=== PATIENT | female | born 1950 | race Caucasian/White ===

== ENCOUNTER 2024-08-11 06:25 | Outpatient (RCR) | payer MEDICARE, OTHER, SELFPAY | END 2024-08-11 23:59 | disposition home or self-care (01) | LOC: RPT 06:25 | PROVIDERS: ATTENDING PHYSICIAN Student in an Organized Health Care Education/Training Program | DX: S49.82XS Other specified injuries of left shoulder and upper arm, sequela (principal); M25.512 Pain in left shoulder; M62.89 Other specified disorders of muscle; Z73.6 Limitation of activities due to disability | CPT/HCPCS: 97010; 97110; 97140; 97162; 97530 ==

== ENCOUNTER 2024-09-01 10:04 | Outpatient (RCR) | payer MEDICARE, OTHER, SELFPAY | END 2024-09-01 23:59 | disposition home or self-care (01) | LOC: RPT 10:04 | PROVIDERS: ATTENDING PHYSICIAN Student in an Organized Health Care Education/Training Program | DX: S49.82XS Other specified injuries of left shoulder and upper arm, sequela (principal); M25.512 Pain in left shoulder; M62.89 Other specified disorders of muscle; Z73.6 Limitation of activities due to disability | CPT/HCPCS: 97010; 97110; 97140 ==

== ENCOUNTER 2024-10-03 09:00 | Emergency (ER) | payer MEDICARE, OTHER, SELFPAY ==
[2024-10-03 09:06] VITALS: BP 125/60
--- NOTE | 2024-10-03 09:48 | ED.GENMED ---
History of Present Illness
General
Chief Complaint: Cough
Source: patient
Exam Limitations: none
Time Seen by Provider: 10/03/24 09:14
Nursing documentation reviewed up to this point in time: agreed with
History of Present Illness
History of Present Illness:
Patient with history of congestive heart failure on torsemide and atrial fibrillation on Eliquis, presents ED secondary to 1 week history of persistent cough, with difficulty sleeping at nighttime. Patient was evaluated at urgent care center 2 days
ago and was prescribed Augmentin along with Tessalon Perle, with minimal relief of symptoms. Denies fever or chills. Denies chest pain. Denies nausea, vomiting, or diarrhea. Denies headache. Denies neck pain. Denies rash. Denies back pain.
No recent travel. Unfortunately, patient who lives at home with family, there are multiple family members who are expressing similar symptoms. Denies loss of appetite. Denies recent change in weight. Denies increased leg swelling or pain.
Review of Systems
Review of Systems
Allergies reviewed?: Yes
All Other Systems: ROS reviewed and negative except as documented in HPI and ROS
Constitutional: Reports no symptoms; Denies fever or chills
Respiratory: Reports cough and trouble breathing
Cardiac: Reports no symptoms; Denies chest pain
ABD/GI: Reports no symptoms; Denies vomiting or diarrhea
: Reports no symptoms
Musculoskeletal: Reports no symptoms
Skin: Reports no symptoms
Neurological: Reports no symptoms; Denies dizzy, headache or weakness
Phy Exam
Physical Exam
Physical Exam:
Physical Exam
General: mild distress, not acutely ill. afebrile
Head: nc/at. eomi
Neck: supple. no meningeal signs. no jvd
Heart: s1/s2 regular rate and rhythm
Lungs: mild respiratory distress. clear bilaterally
Abdomen: normal bowel sounds. not tender.
Neuro: alert and oriented x 3. no focal neurological deficits
Skin: no rash
Psychiatric: well kept. interactive and cooperative
Extremities: no edema. no calf tenderness.
Course
Orders/Labs/Results
Orders:
Orders
10/03/24 09:28
CR Chest - 2 Views Urgent
Comment:
Reason For Exam: cough/sob
10/03/24 09:59
Dexamethasone Pf [Decadron] 10 mg PO NOW STA
10/03/24 10:06
Dexamethasone Pf [Decadron] 10 mg .ROUTE .STK-MED ONE
Vital Signs
Initial and Last Documented VS:
Initial Vital Signs
Temp Pulse Resp BP Pulse Ox
97.9 F 70 18 125/60 96
10/03/24 09:06 10/03/24 09:06 10/03/24 09:06 10/03/24 09:06 10/03/24 09:06
Last Documented Vital Signs
Temp Pulse Resp BP Pulse Ox
97.9 F 70 18 125/60 96
10/03/24 09:06 10/03/24 09:06 10/03/24 09:06 10/03/24 09:06 10/03/24 09:51
MDM/Problems Addressed
MDM/Problems Addressed:
Chest x-ray report reviewed and discussed with patient and family. History and exam consistent with likely pneumonia. Fortunately, patient is afebrile, hemodynamically stable, without any acute respite distress, nor any evidence of dehydration.
Discussed treatment options with the patient and family. At this time, patient feels comfortable going home with continuation of her already prescribed antibiotics, along with close follow-up with PCP as an outpatient. Patient advised to return to
ED with worsening symptoms.
*Pulse Oximetry
SaO2: 96
Oxygen Mode of Delivery: Room air
Patient hypoxic: no
*Critical Care Note
Total Time (30-74mins, 75-104mins- exclusive of procedures): Not Applicable
ED Attending Note
-
Portions of this chart may have been created with voice recognition software.� Occasional wrong word or��sound alike� substitutions may have occurred due to the inherent limitations of voice recognition software.
Discharge Plan
Departure
Patient Disposition: Home (Routine Discharge)
Date of Disposition: 10/03/24
Time of Disposition: 09:59
Patient with high blood pressure during this ER visit?: Yes
Condition: Fair
Discharge Problem:
Pneumonia
Instructions: Pneumonia, Adult (DC)
Prescriptions:
New
albuterol sulfate [Ventolin HFA] 90 mcg/actuation HFA aerosol inhaler
2 puff inhalation Q6H PRN (Reason: shortness of breath or wheezing) Qty: 8.5 0RF
Referrals:
Montserrat Art MD [Family Provider]
Activity Restrictions/Additional Instructions:
As discussed, please follow-up with your primary care physician for reevaluation this week, or return to ED with worsening symptoms. In ED, chest x-ray revealed likely right-sided pneumonia. Please continue already prescribed antibiotics, along
with inhaler as well as cough medication. Your prescription has been sent electronically to [facility] pharmacy in [place].
Interventions
Interventions:
*Risk Screen - Suicide Last Done: 10/03/24 09:06
*General Assessment Last Done: 10/03/24 09:06
*Neglect/Abuse Screening Last Done: 10/03/24 09:06
*ED- Fall Risk Assessment Last Done: 10/03/24 09:30
*ED COVID-19 Vaccine History Last Done: 10/03/24 09:30
*Nursing Disposition Last Done: 10/03/24 10:10
ED- Pulmonary Assessment Last Done: 10/03/24 09:31
Discharge Date and Time
Discharge Date/Time: 10/03/24 10:22
Print Language: PORTUGUESE
[2024-10-03] MEDS: DECADRON 10 MG PO (10:08)
== END 2024-10-03 10:22 | disposition home or self-care (01) ==
LOC: EMR 09:00
PROVIDERS: EMERGENCY PHYSICIAN Emergency Medicine; FAMILY PHYSICIAN Student in an Organized Health Care Education/Training Program
DX: J18.9 Pneumonia, unspecified organism (principal); R03.0 Elevated blood-pressure reading, without diagnosis of hypertension; I48.91 Unspecified atrial fibrillation; I50.9 Heart failure, unspecified; Z79.01 Long term (current) use of anticoagulants
CPT/HCPCS: 99283; 71046

== ENCOUNTER 2024-10-06 08:12 | Outpatient (RCR) | payer MEDICARE, OTHER, SELFPAY | END 2024-10-06 23:59 | disposition home or self-care (01) | LOC: RPT 08:12 | PROVIDERS: ATTENDING PHYSICIAN Student in an Organized Health Care Education/Training Program | DX: S49.82XS Other specified injuries of left shoulder and upper arm, sequela (principal); M25.512 Pain in left shoulder; M62.89 Other specified disorders of muscle; Z73.6 Limitation of activities due to disability | CPT/HCPCS: 97110 ==